=== PATIENT | female | born 1935 | race Hispanic/Latino ===

== ENCOUNTER 2019-07-08 18:16 | Observation (INO) | payer MEDICARE ==
--- NOTE | 2019-07-08 19:27 | Emergency Department Report ---
ED Head Trauma HPI - General Chief complaint: Head Injury Stated complaint: HEAD PAIN AFTER FALL Time Seen by Provider: 07/08/19 19:20 Source: family, EMS Mode of arrival: Stretcher Limitations: No Limitations - History of Present Illness Initial comments: Patient is an 84-year-old female that presents emergency room with complaints of fall and head injury and loss of conscious. Patient states that she lost her balance and fell backwards and hit her head on the stairs. Patient states she did not fall very for. Patient states she fell from a standing position. Patient states she didnot lost consciousness but is not sure how long she lost consciousness. Patient states has a bump on the back of her head. Patient states she is on eliquis. Patient denies any active bleeding. Patient denies any cuts or abrasions. Patient denies chest pain or shortness of breath. Patient denies any symptoms at this time except for headache. Patient denies neck pain. Patient states her pain in the back part of her head is a 3 out of 10. Patient states her pain is better with rest. Patient states her pain is improving with time. Patient has not taken any [id number] medications. MD Complaint: head injury, head pain -: Sudden Mechanism of Injury: other Location: occipital Loss of Consciousness: no Previous Trauma to this Area: No Place: home Radiation: none Severity scale (0 -10): 3 Quality: dull, aching Consistency: constant Other Injuries: none Context: on other anticoagulant Associated Symptoms: other. denies: confusion, amnesia, repetitive questioning, vision changes, nausea, vomiting, vertigo, syncope, numbness, weakness, tingling, neck pain - Related Data Allergies/Adverse reactions: Allergies Allergy/AdvReac Type Severity Reaction Status Date / Time codeine Allergy Anaphylaxis Verified 07/08/19 19:31 lorazepam [From Ativan] Allergy Anaphylaxis Verified 07/08/19 19:31 Sulfa (Sulfonamide Allergy Anaphylaxis Verified 07/08/19 19:31 Antibiotics) ED Review of Systems ROS: Stated complaint: HEAD PAIN AFTER FALL Other details as noted in HPI Constitutional: denies: chills, fever Eyes: denies: eye pain, eye discharge, vision change ENT: denies: ear pain, throat pain Respiratory: denies: cough, shortness of breath, wheezing Cardiovascular: denies: chest pain, palpitations Endocrine: no symptoms reported Gastrointestinal: denies: abdominal pain, nausea, diarrhea Genitourinary: denies: urgency, dysuria, discharge Musculoskeletal: denies: back pain, joint swelling, arthralgia Skin: denies: rash, lesions Neurological: headache. denies: weakness, paresthesias Psychiatric: denies: anxiety, depression Hematological/Lymphatic: denies: easy bleeding, easy bruising ED Past Medical Hx - Past Medical History Previous Medical History?: Yes Hx Hypertension: Yes Hx Deep Vein Thrombosis: Yes Hx Renal Disease: No Hx Arthritis: Yes - Surgical History Past Surgical History?: Yes Additional Surgical History: Right knee replacement. Left hip replacement - Family History Family history: no significant - Social History Smoking Status: Never Smoker Substance Use Type: None ED Physical Exam - General Limitations: No Limitations General appearance: alert, in no apparent distress - Head Head exam: Present: normocephalic, other (scalp contusion) - Eye Eye exam: Present: normal appearance - ENT ENT exam: Present: mucous membranes moist - Neck Neck exam: Present: normal inspection - Respiratory Respiratory exam: Present: normal lung sounds bilaterally. Absent: respiratory distress, wheezes, rales - Cardiovascular Cardiovascular Exam: Present: regular rate, normal rhythm. Absent: systolic murmur, diastolic murmur, rubs, gallop - GI/Abdominal GI/Abdominal exam: Present: soft, normal bowel sounds - Extremities Exam Extremities exam: Present: normal inspection - Back Exam Back exam: Present: normal inspection - Neurological Exam Neurological exam: Present: alert, oriented X3 - Psychiatric Psychiatric exam: Present: normal affect, normal mood - Skin Skin exam: Present: warm, dry, intact, normal color. Absent: rash ED Course Vital Signs 07/08/19 07/08/19 07/08/19 18:41 19:18 19:31 Temperature 98.2 F Pulse Rate 79 84 77 Respiratory 16 14 15 Rate Blood Pressure 137/46 83/60 O2 Sat by Pulse 98 100 Oximetry 07/08/19 07/08/19 07/08/19 19:45 20:00 20:15 Temperature Pulse Rate 77 76 79 Respiratory 22 22 21 Rate Blood Pressure 137/46 125/41 125/41 O2 Sat by Pulse 100 99 99 Oximetry 07/08/19 07/08/19 07/08/19 20:30 20:55 21:01 Temperature Pulse Rate 77 77 73 Respiratory 19 15 19 Rate Blood Pressure 110/38 110/38 107/31 O2 Sat by Pulse 100 100 99 Oximetry 07/08/19 07/08/19 07/08/19 21:15 21:30 21:45 Temperature Pulse Rate 70 73 72 Respiratory 17 16 14 Rate Blood Pressure 98/32 105/33 123/45 O2 Sat by Pulse 100 100 100 Oximetry 07/08/19 07/08/19 07/08/19 22:01 22:16 22:30 Temperature Pulse Rate 75 78 78 Respiratory 21 12 19 Rate Blood Pressure 128/43 128/43 140/44 O2 Sat by Pulse 99 99 100 Oximetry 07/08/19 07/08/19 07/08/19 22:45 23:01 23:15 Temperature Pulse Rate 75 78 79 Respiratory 19 20 16 Rate Blood Pressure 126/44 126/42 135/51 O2 Sat by Pulse 100 99 100 Oximetry 07/08/19 07/09/19 23:30 00:00 Temperature 98.2 F Pulse Rate 78 78 Respiratory 19 19 Rate Blood Pressure 145/53 O2 Sat by Pulse 100 100 Oximetry - Reevaluation(s) Reevaluation #1: I discussed all results with patient and family. Patient agrees with plan of care and admission. Patient will be admitted to the hospitalist service. 07/08/19 21:51 - Consultations Consultation #1: Hospitalist consult for admission. Hospitalist admit patient. 07/08/19 21:51 - Lab Data Result diagrams: 07/08/19 20:12 07/08/19 20:12 Lab Results 07/08/19 07/08/19 Range/Units 20:12 20:12 WBC 4.8 (4.5-11.0) K/mm3 RBC 2.97 L (3.65-5.03) M/mm3 Hgb 9.6 L (10.1-14.3) gm/dl Hct 27.7 L (30.3-42.9) % MCV 93 (79-97) fl MCH 32 (28-32) pg MCHC 35 H (30-34) % RDW 13.2 (13.2-15.2) % Plt Count 133 L (140-440) K/mm3 Sodium 135 L (137-145) mmol/L Potassium 5.9 H (3.6-5.0) mmol/L Chloride 109.2 H (98-107) mmol/L Carbon Dioxide 15 L (22-30) mmol/L Anion Gap 17 mmol/L BUN 32 H (7-17) mg/dL Creatinine 1.3 H (0.7-1.2) mg/dL Estimated GFR 39 ml/min BUN/Creatinine Ratio 25 % Glucose 269 H (65-100) mg/dL Calcium 8.8 (8.4-10.2) mg/dL Total Bilirubin 0.50 (0.1-1.2) mg/dL AST 27 (5-40) units/L ALT 15 (7-56) units/L Alkaline Phosphatase 109 (35-129) units/L Total Protein 6.3 (6.3-8.2) g/dL Albumin 2.8 L (3.9-5) g/dL Albumin/Globulin Ratio 0.8 % - Radiology Data LEFT HIP AND PELVIS 4 VIEWS INDICATION: hip pain. fall. COMPARISON: No relevant prior imaging study available. FINDINGS: There is a left hip arthroplasty. No periprosthetic lucency is seen. No acute, displaced fracture or dislocation is seen. There is diffuse, subjective osteopenia. IMPRESSION: 1. No acute findings. NONENHANCED CT SCAN OF THE HEAD: INDICATION / CLINICAL INFORMATION: 84 years Female; head ache. head injury, loc, contusion,. TECHNIQUE: Routine CT head without contrast. All CT scans at this location are performed using CT dose reduction for ALARA by means of automated exposure control. COMPARISON: None. FINDINGS: BRAIN / INTRACRANIAL CONTENTS: No intracranial sequela from the trauma. No scalp hematoma., Focal area of scalp thickening in the left posterior parietal region; no air-fluid level in the visualized portions of the paranasal sinuses. No acute hemorrhage, mass effect, midline shift, hydrocephalus, or acute, large territorial infarct. Mild to moderate cortical involution is seen. Volume loss is also seen in the cerebellar hemispheres. Normal temporal horn tips suggest normal hippocampi. Low- attenuation deep hemispheric white matter lesions are seen probably due to chronic ischemia. No significant white matter abnormality. CRANIOCERVICAL JUNCTION: No significant abnormality. ORBITS: No significant abnormality of visualized orbits. SINUSES / MASTOIDS: No significant abnormality of the visualized paranasal sinuses or mastoid air cells. ADDITIONAL FINDINGS: None. IMPRESSION: No acute lesion in the brain No intracranial sequela from the trauma - Medical Decision Making Patient is an 84-year-old female that presents emergency room with a fall, head injury, scalp contusion. Patient believes she lost her balance. Patient was found to be hypotensive. Patient's blood pressure relatively low for her since she has a history of hypertension. Patient's fall possibly secondary to low blood pressure. Head CT negative. Patient also complained of hip pain and x- ray negative for fracture. Patient also found to have renal insufficiency and hyperkalemia. Patient admitted to the hospitalist service for further evaluation and treatment. Patient given fluids in the ER. - Differential Diagnosis renal insufficiency, dehydration, fall, head injury Critical Care Time: Yes Critical care time in (mins) excluding proc time.: 35 Critical care attestation.: If time is entered above; I have spent that time in minutes in the direct care of this critically ill patient, excluding procedure time. Critical Care Time: 35 minutes ED Disposition Clinical Impression: Left hip pain, Weakness, Hyperkalemia Head injury Qualifiers: Encounter type: initial encounter Qualified Code(s): S09.90XA - Unspecified injury of head, initial encounter Acute renal failure Qualifiers: Acute renal failure type: unspecified Qualified Code(s): N17.9 - Acute kidney failure, unspecified Hypotension Qualifiers: Hypotension type: unspecified hypotension type Qualified Code(s): I95.9 - Hypotension, unspecified Disposition: DC-09 OP ADMIT IP TO THIS HOSP Is pt being admited?: Yes Does the pt Need Aspirin: No Condition: Critical Time of Disposition: 21:51
[2019-07-08 20:35] LABS: Hematocrit 27.7 % (30.3-42.9); Hemoglobin 9.6 gm/dl (10.1-14.3); Mean Corpuscular HGB Conc 35 % (30-34); Mean Corpuscular Volume 93 fl (79-97); Platelet Count 133 K/mm3 (140-440); Red Blood Count 2.97 M/mm3 (3.65-5.03); Red Cell Distribution Width 13.2 % (13.2-15.2)
--- NOTE | 2019-07-08 20:45 | XRay Report ---
LEFT HIP AND PELVIS 4 VIEWS INDICATION: hip pain. fall. COMPARISON: No relevant prior imaging study available. FINDINGS: There is a left hip arthroplasty. No periprosthetic lucency is seen. No acute, displaced fracture or dislocation is seen. There is diffuse, subjective osteopenia. IMPRESSION: 1. No acute findings. Signer Name: Sachin Harden MD Signed: 07/08/2019 8:40 PM Workstation Name: [email or web address]
[2019-07-08 20:55] LABS: Albumin 2.8 g/dL (3.9-5); Calcium 8.8 mg/dL (8.4-10.2)
--- NOTE | 2019-07-08 21:25 | Cat Scan Report ---
NONENHANCED CT SCAN OF THE HEAD: INDICATION / CLINICAL INFORMATION: 84 years Female; head ache. head injury, loc, contusion,. TECHNIQUE: Routine CT head without contrast. All CT scans at this location are performed using CT dos e reduction for ALARA by means of automated exposure control. COMPARISON: None. FINDINGS: BRAIN / INTRACRANIAL CONTENTS: No intracranial sequela from the trauma. No scalp hematoma., Focal are a of scalp thickening in the left posterior parietal region; no air-fluid level in the visualized por tions of the paranasal sinuses. No acute hemorrhage, mass effect, midline shift, hydrocephalus, or acute, large territorial infarct. Mild to moderate cortical involution is seen. Volume loss is also seen in the cerebellar hemispheres . Normal temporal horn tips suggest normal hippocampi. Low-attenuation deep hemispheric white matter lesions are seen probably due to chronic ischemia. No significant white matter abnormality. CRANIOCERVICAL JUNCTION: No significant abnormality. ORBITS: No significant abnormality of visualized orbits. SINUSES / MASTOIDS: No significant abnormality of the visualized paranasal sinuses or mastoid air elkin ls. ADDITIONAL FINDINGS: None. IMPRESSION: No acute lesion in the brain No intracranial sequela from the trauma Signer Name: Jordon Hummel MD Signed: 07/08/2019 9:20 PM Workstation Name: [email or web address]
[2019-07-08] MEDS ORDERED: SODIUM CHLORIDE 0.9% 1000 ML 1,000 ML IV ONE (21:48)
[2019-07-08] MEDS ORDERED: CALCIUM CHLORIDE 1,000 MG/10 ML SDV IVP ONE (21:48)
[2019-07-08] MEDS ORDERED: CALCIUM CHLORIDE 1,000 MG in SODIUM CHLORIDE 0.9% 100 ML IV ONE (22:00)
[2019-07-08] MEDS ORDERED: DEXTROSE 50% IN WATER (25GM) 50 ML SYRINGE IV PRN (22:27)
[2019-07-08] MEDS ORDERED: MAGNESIUM HYDROXIDE (MOM) ORAL LIQD UDC PO PRN (22:27)
[2019-07-08] MEDS ORDERED: ONDANSETRON 4 MG/2 ML INJ IV PRN (22:27)
--- NOTE | 2019-07-08 22:40 | History and Physical Report ---
History of Present Illness Date of examination: 07/08/19 Date of admission: 07/08/2019 Chief complaint: Left hip pain status post fall History of present illness: 84-year-old white female with significant past medical history of diabetes mellitus, coronary artery disease, history of DVT and NE in the past presenting to the emergency room today after having a fall at home complaining of left hip pain and headache. She indicates that she lost her balance and fell backwards hitting the back of her head. She is not quite sure whether she lost consciousness for a few seconds. She denies any blurry vision, no chest pain or shortness of breath, no nausea vomiting, no fever or chills. Patient denies history of frequent falls. Upon arrival in the emergency room work-up reveals hyperkalemia and some renal insufficiency. Past History Past Medical History: CAD, diabetes, DVT, hypertension, other (History of colon cancer,) Past Surgical History: total hip replacement (Left hip replacement), total knee replacement (Right knee), PTCA, Other (Left rotator cuff surgery, IVC filter placement) Social history: no significant social history Family history: no significant family history Medications and Allergies Allergies Allergy/AdvReac Type Severity Reaction Status Date / Time codeine Allergy Anaphylaxis Verified 07/08/19 19:31 lorazepam [From Ativan] Allergy Anaphylaxis Verified 07/08/19 19:31 Sulfa (Sulfonamide Allergy Anaphylaxis Verified 07/08/19 19:31 Antibiotics) Active Meds: Active Medications Acetaminophen (Tylenol) 650 mg PO Q4H PRN PRN Reason: Pain MILD(1-3)/Fever >100.5/QUAN Dextrose (D50w (25gm) Syringe) 50 ml IV Q30MIN PRN; Protocol PRN Reason: Hypoglycemia Sodium Chloride (Nacl 0.9% 1000 Ml) 1,000 mls @ 999 mls/hr IV BOLUS ONE Stop: 07/08/19 22:48 Sodium Chloride (Nacl 0.9% 1000 Ml) 1,000 mls @ 75 mls/hr IV DIRECT JOVANI Insulin Human Lispro (Humalog) 0 unit SUB-Q ACHS JOVANI; Protocol Magnesium Hydroxide (Milk Of Magnesia) 30 ml PO Q4H PRN PRN Reason: Constipation Ondansetron HCl (Zofran) 4 mg IV Q8H PRN PRN Reason: Nausea And Vomiting Sodium Chloride (Sodium Chloride Flush Syringe 10 Ml) 10 ml IV BID JOVANI Sodium Chloride (Sodium Chloride Flush Syringe 10 Ml) 10 ml IV PRN PRN PRN Reason: LINE FLUSH Review of Systems Musculoskeletal: other (Left hip pain) Neurological: headaches Exam - Constitutional Vitals: Temp Pulse Resp BP Pulse Ox 98.2 F 79 16 137/46 98 07/08/19 18:41 07/08/19 18:41 07/08/19 18:41 07/08/19 18:41 07/08/19 18:41 General appearance: Present: no acute distress, well-nourished - EENT Eyes: Present: PERRL, EOM intact ENT: hearing intact (Patient has some hearing impairment), clear oral mucosa, dentition normal, other (Bruises on left ear) - Neck Neck: Present: supple, normal ROM - Respiratory Respiratory effort: normal Respiratory: bilateral: CTA - Cardiovascular Rhythm: regular Heart Sounds: Present: S1 & S2 - Extremities Extremities: no ischemia, No edema, Full ROM Extremity abnormal: other (Healed scar of surgery on right knee) Peripheral Pulses: within normal limits - Abdominal General gastrointestinal: Present: soft, non-tender, non-distended - Integumentary Integumentary: Present: clear, warm, dry - Musculoskeletal Musculoskeletal: strength equal bilaterally - Psychiatric Psychiatric: appropriate mood/affect, intact judgment & insight, cooperative - Neurologic Neurologic: CNII-XII intact, moves all extremities Results - Labs CBC & Chem 7: 07/08/19 20:12 07/08/19 20:12 Labs: Abnormal lab results 07/08/19 07/08/19 Range/Units 20:12 20:12 RBC 2.97 L (3.65-5.03) M/mm3 Hgb 9.6 L (10.1-14.3) gm/dl Hct 27.7 L (30.3-42.9) % MCHC 35 H (30-34) % Plt Count 133 L (140-440) K/mm3 Sodium 135 L (137-145) mmol/L Potassium 5.9 H (3.6-5.0) mmol/L Chloride 109.2 H (98-107) mmol/L Carbon Dioxide 15 L (22-30) mmol/L BUN 32 H (7-17) mg/dL Creatinine 1.3 H (0.7-1.2) mg/dL Glucose 269 H (65-100) mg/dL Albumin 2.8 L (3.9-5) g/dL Assessment and Plan - Patient Problems (1) Hyperkalemia Current Visit: Yes Status: Acute Plan to address problem: Patient has had insulin and glucose, calcium gluconate in the emergency room. Will monitor potassium levels. We will also monitor EKG. (2) Left hip pain Current Visit: Yes Status: Acute Plan to address problem: Radiological exam was unremarkable. Will place on analgesic medication as needed. (3) Fall Current Visit: Yes Status: Acute Plan to address problem: Patient placed on fall precautions. (4) ARTHUR (acute kidney injury) Current Visit: Yes Status: Acute Plan to address problem: Patient has been placed on IV fluid. Will monitor BUN and creatinine. (5) Diabetes mellitus Current Visit: Yes Status: Acute Plan to address problem: We will monitor Accu-Cheks and resume routine home medications once reconciled.. (6) DVT prophylaxis Current Visit: Yes Status: Acute Plan to address problem: Patient placed on subcutaneous heparin. (7) Full code status Current Visit: Yes Status: Acute
[2019-07-08] MEDS ORDERED: CALCIUM CHLORIDE 1,000 MG/10 ML SYRINGE IV ONE (23:37)
[2019-07-09] MEDS: SODIUM CHLORIDE 0.9% 1000 ML 1,000 ML IV SCH ×2 (02:06→20:49)
[2019-07-09 06:27] LABS: Basophils % (Auto) 0.4 % (0.0-1.8); Eosinophils # (Auto) 0.3 K/mm3 (0.0-0.4); Eosinophils % (Auto) 6.5 % (0.0-4.3); Hematocrit 26.4 % (30.3-42.9); Lymphocytes # (Auto) 1.1 K/mm3 (1.2-5.4); Lymphocytes % (Auto) 29.1 % (13.4-35.0); Mean Corpuscular HGB Conc 34 % (30-34); Mean Corpuscular Volume 93 fl (79-97); Monocytes # (Auto) 0.5 K/mm3 (0.0-0.8); Monocytes % (Auto) 12.4 % (0.0-7.3); Platelet Count 128 K/mm3 (140-440); Red Blood Count 2.84 M/mm3 (3.65-5.03); Red Cell Distribution Width 13.1 % (13.2-15.2)
[2019-07-09 06:39] LABS: INR 1.66 (0.87-1.13)
[2019-07-09 06:40] LABS: Partial Thromboplastin Time 36.8 Sec. (24.2-36.6)
[2019-07-09 06:50] LABS: Calcium 9.3 mg/dL (8.4-10.2)
[2019-07-09] MEDS: INSULIN LISPRO 100 UNIT/ML SUB-Q SCH ×4 (07:06→23:12)
[2019-07-09] MEDS: ACETAMINOPHEN 325 MG TAB PO PRN (11:08)
[2019-07-09] MEDS: HEPARIN 5,000 UNIT/1 ML VIAL SUB-Q SCH ×2 (14:28→22:49)
--- NOTE | 2019-07-09 15:44 | Progress Note ---
Assessment and Plan - Patient Problems (1) ARTHUR (acute kidney injury) Current Visit: Yes Status: Acute Plan to address problem: IV fluid resuscitation therapy, repeat BMP in a.m., serum creatinine has normalized, avoid nephrotoxic agents. (2) Post-concussion syndrome Current Visit: Yes Status: Acute Plan to address problem: CT head, neurochecks, seizure precaution, supportive care. If patient experiences mental status changes or multiple episodes of nausea and vomiting will repeat CT of the head. (3) Hyperkalemia Current Visit: Yes Status: Acute Plan to address problem: Repeat BMP, supportive care. No EKG changes. (4) Metabolic acidosis Current Visit: Yes Status: Acute Plan to address problem: Repeat BMP, IV bicarbonate therapy, (5) Diabetes mellitus Current Visit: Yes Status: Acute Plan to address problem: Consistent carbohydrate diet, Accu-Chek, sliding scale insulin therapy, hypoglycemia protocol. (6) DVT prophylaxis Current Visit: Yes Status: Acute Plan to address problem: SCD to bilateral lower extremities while in bed, prophylactic heparin History Interval history: 84-year-old female hospital day 2 with acute kidney injury, hyperchloremic metabolic acidosis, hyperkalemia, postconcussive syndrome, debility, vascular dementia with worsening acidosis overnight. Patient complains of weakness, unsteady gait, "feeling like I am off balance". Patient denies fever, chills, dizziness, headache, vision changes. Lab and imaging studies reviewed. Patient serum potassium is still elevated. Hospitalist Physical - Constitutional Vitals: Temp Pulse Resp BP Pulse Ox 98.0 F 87 19 130/36 96 07/09/19 07:31 07/09/19 12:09 07/09/19 12:09 07/09/19 12:07/09/19 12:09 General appearance: Present: no acute distress, well-nourished - EENT Eyes: Present: PERRL ENT: hearing intact - Neck Neck: Present: supple - Respiratory Respiratory: bilateral: CTA - Cardiovascular Rhythm: regular Heart Sounds: Present: S1 & S2 - Extremities Extremities: no ischemia Peripheral Pulses: within normal limits - Abdominal General gastrointestinal: soft, non-tender, non-distended - Integumentary Integumentary: Present: clear, dry - Psychiatric Psychiatric: appropriate mood/affect, cooperative - Neurologic Neurologic: CNII-XII intact Results - Labs CBC & Chem 7: 07/09/19 05:23 07/09/19 05:23 Labs: Laboratory Last Values WBC 3.9 K/mm3 (4.5-11.0) L 07/09/19 05:23 RBC 2.84 M/mm3 (3.65-5.03) L 07/09/19 05:23 Hgb 9.0 gm/dl (10.1-14.3) L 07/09/19 05:23 Hct 26.4 % (30.3-42.9) L 07/09/19 05:23 MCV 93 fl (79-97) 07/09/19 05:23 MCH 32 pg (28-32) 07/09/19 05:23 MCHC 34 % (30-34) 07/09/19 05:23 RDW 13.1 % (13.2-15.2) L 07/09/19 05:23 Plt Count 128 K/mm3 (140-440) L 07/09/19 05:23 Lymph % (Auto) 29.1 % (13.4-35.0) 07/09/19 05:23 Beckham % (Auto) 12.4 % (0.0-7.3) H 07/09/19 05:23 Eos % (Auto) 6.5 % (0.0-4.3) H 07/09/19 05:23 Baso % (Auto) 0.4 % (0.0-1.8) 07/09/19 05:23 Lymph # 1.1 K/mm3 (1.2-5.4) L 07/09/19 05:23 Beckham # 0.5 K/mm3 (0.0-0.8) 07/09/19 05:23 Eos # 0.3 K/mm3 (0.0-0.4) 07/09/19 05:23 Baso # 0.0 K/mm3 (0.0-0.1) 07/09/19 05:23 Seg Neutrophils % 51.6 % (40.0-70.0) 07/09/19 05:23 Seg Neutrophils # 2.0 K/mm3 (1.8-7.7) 07/09/19 05:23 PT 19.9 Sec. (12.2-14.9) H 07/09/19 05:23 INR 1.66 (0.87-1.13) H 07/09/19 05:23 APTT 36.8 Sec. (24.2-36.6) H 07/09/19 05:23 Sodium 140 mmol/L (137-145) 07/09/19 05:23 Potassium 5.3 mmol/L (3.6-5.0) H 07/09/19 05:23 Chloride 115.4 mmol/L (98-107) H 07/09/19 05:23 Carbon Dioxide 13 mmol/L (22-30) L 07/09/19 05:23 Anion Gap 17 mmol/L 07/09/19 05:23 BUN 29 mg/dL (7-17) H 07/09/19 05:23 Creatinine 1.0 mg/dL (0.7-1.2) 07/09/19 05:23 Estimated GFR 53 ml/min 07/09/19 05:23 BUN/Creatinine Ratio 29 % 07/09/19 05:23 Glucose 124 mg/dL (65-100) H 07/09/19 05:23 POC Glucose 220 (70-105) H 07/09/19 11:27 Calcium 9.3 mg/dL (8.4-10.2) 07/09/19 05:23 Total Bilirubin 0.50 mg/dL (0.1-1.2) 07/08/19 20:12 AST 27 units/L (5-40) 07/08/19 20:12 ALT 15 units/L (7-56) 07/08/19 20:12 Alkaline Phosphatase 109 units/L (35-129) 07/08/19 20:12 Total Protein 6.3 g/dL (6.3-8.2) 07/08/19 20:12 Albumin 2.8 g/dL (3.9-5) L 07/08/19 20:12 Albumin/Globulin Ratio 0.8 % 07/08/19 20:12 Active Medications - Current Medications Current Medications: Generic Name Dose Route Start Last Admin Trade Name Freq PRN Reason Stop Dose Admin Acetaminophen 650 mg 07/08/19 22:27 07/09/19 11:08 Tylenol PO 650 mg Q4H PRN Administration Pain MILD(1-3)/Fever >100.5/QUAN Dextrose 50 ml 01/08/20 22:27 D50w (25gm) Syringe IV Q30MIN PRN Hypoglycemia Protocol Heparin Sodium (Porcine) 5,000 unit 07/09/19 14:00 07/09/19 14:28 Heparin SUB-Q 5,000 unit Q8HR JOVANI Administration Sodium Chloride 1,000 mls @ 75 mls/hr 07/08/19 22:30 07/09/19 02:06 Nacl 0.9% 1000 Ml IV 75 mls/hr DIRECT JOVANI Administration Insulin Human Lispro 0 unit 07/09/19 07:30 07/09/19 11:17 Humalog SUB-Q 3 unit ACHS JOVANI Administration Protocol Magnesium Hydroxide 30 ml 07/08/19 22:27 Milk Of Magnesia PO Q4H PRN Constipation Ondansetron HCl 4 mg 07/08/19 22:27 Zofran IV Q8H PRN Nausea And Vomiting Sodium Chloride 10 ml 07/09/19 10:00 07/09/19 11:07 Sodium Chloride Flush Syringe 10 Ml IV 10 ml BID JOVANI Administration Sodium Chloride 10 ml 07/08/19 22:27 07/09/19 02:07 Sodium Chloride Flush Syringe 10 Ml IV 10 ml PRN PRN Administration LINE FLUSH Nutrition/Malnutrition Assess - Dietary Evaluation Nutrition/Malnutrition Findings: Nutrition Notes Start: 07/09/19 10:41 Freq: Status: Active Protocol: Document 07/09/19 10:41 LAURENCE (Rec: 07/09/19 10:50 LAURENCE [id number]) Co-Sign 07/09/19 10:41 LP Nutrition Notes Need for Assessment generated from: MD Order Initial or Follow up Assessment Current Diagnosis Coronary Artery Disease, Diabetes,Hypertension Other Pertinent Diagnosis Hx colon cancer Current Diet Consistent CHO/Cardiac Labs/Tests K 5.3 BUN 29 BG 124 Pertinent Medications Reviewed Height 5 ft 3 in Weight 68 kg Usual Body Weight 68 kg [place] Body Weight (kg) 52.27 BMI 26.5 Intake Prior to Admission Fair Weight Status Overweight Subjective/Other Information RD screen for skin risk. Nicholas score was 24. Pt has a few skin breakdowns. Pt has had no wt loss. Pt stated that she hasn't felt hungry since march due to not feeling well. Pt stated that she normally eats breakfast, a snack, and dinner which is normal for her. Pt stated that she does her own cooking and hasn't felt well to do it. Noted no muscle or fat wasting . Pt stated no N/V. Percent of energy/protein needs met: <25% of needs Burn Absent Trauma Absent GI Symptoms None Current % PO Poor (25-49%) Minimum of two criteria No Energy Intake (non-severe) <75% Estimated Energy Requirement >7 days #1 Nutrition Diagnosis Inadequate oral intake Etiology Left hip pain As Evidenced by Signs and Symptoms <75% of estimated energy requirement in >7 days, recent fall Is patient on ventilator? No Is Patient Ambulatory and/or Out of Bed Yes REE-([facility]-ambulatory/OOB) [ 1441.869 [id number]] Calculation Used for Recommendations [facility] Additional Notes Protein: 68-82g (1-1.2g/kg) Fluid: 1ml/kcal Nutrition Intervention Change Diet Order: Continue current Add Supplement/Snack (indicate name/kcal Glucerna daily /protein ) Provides kCal: 220 Provides Protein (gm) 10 Goal #1 Meet at least 75% of energy and protein needs via PO Anticipated Discharge Needs: Consistent CHO/Cardiac Follow-Up By: 07/13/19 Additional Comments F/U for PO intakes and ONS tolerance
[2019-07-09] MEDS ORDERED: SODIUM BICARB 8.4% 50 MEQ/50 ML SYRINGE IV ONE ×3 (16:46→23:00)
[2019-07-10] MEDS: ACETAMINOPHEN 325 MG TAB PO PRN (05:42)
[2019-07-10] MEDS: HEPARIN 5,000 UNIT/1 ML VIAL SUB-Q SCH ×3 (05:43→23:36)
[2019-07-10] MEDS: INSULIN LISPRO 100 UNIT/ML SUB-Q SCH ×4 (08:14→23:35)
[2019-07-10 14:47] LABS: Calcium 8.5 mg/dL (8.4-10.2)
--- NOTE | 2019-07-10 16:00 | Progress Note ---
Assessment and Plan - Patient Problems (1) ARTHUR (acute kidney injury) Current Visit: Yes Status: Resolved Plan to address problem: IV fluid resuscitation therapy, repeat BMP in a.m., serum creatinine has normalized, avoid nephrotoxic agents. (2) Post-concussion syndrome Current Visit: Yes Status: Acute Plan to address problem: CT head, neurochecks, seizure precaution, supportive care. If patient experiences mental status changes or multiple episodes of nausea and vomiting will repeat CT of the head. (3) Hyperkalemia Current Visit: Yes Status: Acute Plan to address problem: Repeat BMP, supportive care. No EKG changes. (4) Metabolic acidosis Current Visit: Yes Status: Acute Plan to address problem: Repeat BMP, IV bicarbonate therapy, (5) Diabetes mellitus Current Visit: Yes Status: Acute Plan to address problem: Consistent carbohydrate diet, Accu-Chek, sliding scale insulin therapy, hypoglycemia protocol. (6) Osteoarthritis Current Visit: Yes Status: Acute Qualifiers: Laterality: left Plan to address problem: Left hip pain status post fall: Pain control, supportive care. . (7) DVT prophylaxis Current Visit: Yes Status: Acute Plan to address problem: SCD to bilateral lower extremities while in bed, prophylactic heparin History Interval history: 84-year-old female hospital day 3 with acute kidney injury, hyperchloremic metabolic acidosis, hyperkalemia, postconcussive syndrome, debility, vascular dementia with worsening acidosis overnight. Patient complains of weakness, unsteady gait, and continuing to "feel like I am off balance". Patient has unsteady gait but is able to ambulte to restroom with standby assistance. denies fever, chills, dizziness, headache, vision changes. Lab and imaging studies reviewed. Patient serum potassium has normalized. but patient has persistent acidosis. PT consulted. Hospitalist Physical - Constitutional Vitals: Temp Pulse Resp BP Pulse Ox 98.8 F 97 H 18 146/51 96 07/10/19 15:30 07/10/19 15:30 07/10/19 15:30 07/10/19 15:30 07/10/19 15:30 General appearance: Present: no acute distress, well-nourished - EENT Eyes: Present: PERRL ENT: hearing decreased - Respiratory Respiratory: bilateral: CTA - Cardiovascular Rhythm: regular Heart Sounds: Present: S1 & S2 - Extremities Extremity abnormal: edema, other (BLE Weakness,) Peripheral Pulses: within normal limits - Abdominal General gastrointestinal: soft, non-tender, non-distended - Integumentary Integumentary: Present: clear, dry - Psychiatric Psychiatric: appropriate mood/affect, cooperative - Neurologic Neurologic: CNII-XII intact, moves all extremities, no gait normal Results - Labs CBC & Chem 7: 07/09/19 05:23 07/10/19 13:56 Labs: Laboratory Last Values WBC 3.9 K/mm3 (4.5-11.0) L 07/09/19 05:23 RBC 2.84 M/mm3 (3.65-5.03) L 07/09/19 05:23 Hgb 9.0 gm/dl (10.1-14.3) L 07/09/19 05:23 Hct 26.4 % (30.3-42.9) L 07/09/19 05:23 MCV 93 fl (79-97) 07/09/19 05:23 MCH 32 pg (28-32) 07/09/19 05:23 MCHC 34 % (30-34) 07/09/19 05:23 RDW 13.1 % (13.2-15.2) L 07/09/19 05:23 Plt Count 128 K/mm3 (140-440) L 07/09/19 05:23 Lymph % (Auto) 29.1 % (13.4-35.0) 07/09/19 05:23 [place] % (Auto) 12.4 % (0.0-7.3) H 07/09/19 05:23 Eos % (Auto) 6.5 % (0.0-4.3) H 07/09/19 05:23 Baso % (Auto) 0.4 % (0.0-1.8) 07/09/19 05:23 Lymph # 1.1 K/mm3 (1.2-5.4) L 07/09/19 05:23 [place] # 0.5 K/mm3 (0.0-0.8) 07/09/19 05:23 Eos # 0.3 K/mm3 (0.0-0.4) 07/09/19 05:23 Baso # 0.0 K/mm3 (0.0-0.1) 07/09/19 05:23 Seg Neutrophils % 51.6 % (40.0-70.0) 07/09/19 05:23 Seg Neutrophils # 2.0 K/mm3 (1.8-7.7) 07/09/19 05:23 PT 19.9 Sec. (12.2-14.9) H 07/09/19 05:23 INR 1.66 (0.87-1.13) H 07/09/19 05:23 APTT 36.8 Sec. (24.2-36.6) H 07/09/19 05:23 Sodium 140 mmol/L (137-145) 07/10/19 13:56 Potassium 4.7 mmol/L (3.6-5.0) 07/10/19 13:56 Chloride 111.6 mmol/L (98-107) H 07/10/19 13:56 Carbon Dioxide 16 mmol/L (22-30) L 07/10/19 13:56 Anion Gap 17 mmol/L 07/10/19 13:56 BUN 26 mg/dL (7-17) H 07/10/19 13:56 Creatinine 1.0 mg/dL (0.7-1.2) 07/10/19 13:56 Estimated GFR 53 ml/min 07/10/19 13:56 BUN/Creatinine Ratio 26 % 07/10/19 13:56 Glucose 217 mg/dL (65-100) H 07/10/19 13:56 POC Glucose 189 (70-105) H 07/10/19 11:40 Calcium 8.5 mg/dL (8.4-10.2) 07/10/19 13:56 Total Bilirubin 0.50 mg/dL (0.1-1.2) 07/08/19 20:12 AST 27 units/L (5-40) 07/08/19 20:12 ALT 15 units/L (7-56) 07/08/19 20:12 Alkaline Phosphatase 109 units/L (35-129) 07/08/19 20:12 Total Protein 6.3 g/dL (6.3-8.2) 07/08/19 20:12 Albumin 2.8 g/dL (3.9-5) L 07/08/19 20:12 Albumin/Globulin Ratio 0.8 % 07/08/19 20:12 Active Medications - Current Medications Current Medications: Generic Name Dose Route Start Last Admin Trade Name Freq PRN Reason Stop Dose Admin Acetaminophen 650 mg 07/08/19 22:27 07/10/19 05:42 Tylenol PO 650 mg Q4H PRN Administration Pain MILD(1-3)/Fever >100.5/QUAN Dextrose 50 ml 07/08/19 22:27 D50w (25gm) Syringe IV Q30MIN PRN Hypoglycemia Protocol Heparin Sodium (Porcine) 5,000 unit 07/09/19 14:00 07/10/19 13:29 Heparin SUB-Q 5,000 unit Q8HR JOVANI Administration Sodium Chloride 1,000 mls @ 75 mls/hr 07/08/19 22:30 07/09/19 20:49 Nacl 0.9% 1000 Ml IV 75 mls/hr DIRECT JOVANI Administration Insulin Human Lispro 0 unit 07/09/19 07:30 07/10/19 13:28 Humalog SUB-Q 2 unit ACHS JOVANI Administration Protocol Magnesium Hydroxide 30 ml 07/08/19 22:27 Milk Of Magnesia PO Q4H PRN Constipation Ondansetron HCl 4 mg 07/08/19 22:27 Zofran IV Q8H PRN Nausea And Vomiting Sodium Chloride 10 ml 07/09/19 10:00 07/10/19 13:29 Sodium Chloride Flush Syringe 10 Ml IV 10 ml BID JOVANI Administration Sodium Chloride 10 ml 07/08/19 22:27 07/09/19 02:07 Sodium Chloride Flush Syringe 10 Ml IV 10 ml PRN PRN Administration LINE FLUSH Nutrition/Malnutrition Assess - Dietary Evaluation Nutrition/Malnutrition Findings: Nutrition Notes Start: 07/09/19 10:41 Freq: Status: Active Protocol: Document 07/09/19 10:41 LAURENCE (Rec: 07/09/19 10:50 LAURENCE [id number]) Co-Sign 07/09/19 10:41 LP Nutrition Notes Need for Assessment generated from: MD Order Initial or Follow up Assessment Current Diagnosis Coronary Artery Disease, Diabetes,Hypertension Other Pertinent Diagnosis Hx colon cancer Current Diet Consistent CHO/Cardiac Labs/Tests K 5.3 BUN 29 BG 124 Pertinent Medications Reviewed Height 5 ft 3 in Weight 68 kg Usual Body Weight 68 kg [place] Body Weight (kg) 52.27 BMI 26.5 Intake Prior to Admission Fair Weight Status Overweight Subjective/Other Information RD screen for skin risk. Nicholas score was 24. Pt has a few skin breakdowns. Pt has had no wt loss. Pt stated that she hasn't felt hungry since march due to not feeling well. Pt stated that she normally eats breakfast, a snack, and dinner which is normal for her. Pt stated that she does her own cooking and hasn't felt well to do it. Noted no muscle or fat wasting . Pt stated no N/V. Percent of energy/protein needs met: <25% of needs Burn Absent Trauma Absent GI Symptoms None Current % PO Poor (25-49%) Minimum of two criteria No Energy Intake (non-severe) <75% Estimated Energy Requirement >7 days #1 Nutrition Diagnosis Inadequate oral intake Etiology Left hip pain As Evidenced by Signs and Symptoms <75% of estimated energy requirement in >7 days, recent fall Is patient on ventilator? No Is Patient Ambulatory and/or Out of Bed Yes REE-([facility]-ambulatory/OOB) [ 1441.869 [id number]] Calculation Used for Recommendations [facility] Additional Notes Protein: 68-82g (1-1.2g/kg) Fluid: 1ml/kcal Nutrition Intervention Change Diet Order: Continue current Add Supplement/Snack (indicate name/kcal Glucerna daily /protein ) Provides kCal: 220 Provides Protein (gm) 10 Goal #1 Meet at least 75% of energy and protein needs via PO Anticipated Discharge Needs: Consistent CHO/Cardiac Follow-Up By: 07/13/19 Additional Comments F/U for PO intakes and ONS tolerance
[2019-07-11] MEDS: HEPARIN 5,000 UNIT/1 ML VIAL SUB-Q SCH ×2 (05:43→17:00)
[2019-07-11 06:15] LABS: Calcium 8.3 mg/dL (8.4-10.2)
[2019-07-11 08:52] VITALS: BP 141/47
[2019-07-11] MEDS: INSULIN LISPRO 100 UNIT/ML SUB-Q SCH ×2 (09:14→12:01)
--- NOTE | 2019-07-11 10:43 | Discharge Summary ---
Providers - Providers Date of Admission: 07/08/19 21:52 Attending physician: ALESHA WAY 07/10/19 11:38 Physical Therapy Evaluation and Treat [CONS] Routine Comment: Reason For Exam: weakness Primary care physician: FARIDA JAMISON Hospitalization Condition: Critical - Discharge Diagnoses (1) ARTHUR (acute kidney injury) Status: Resolved (2) Post-concussion syndrome Status: Acute (3) Hyperkalemia Status: Acute (4) Metabolic acidosis Status: Acute (5) Diabetes mellitus Status: Acute (6) Osteoarthritis Status: Acute Qualifiers: Laterality: left (7) DVT prophylaxis Status: Acute Exam - Constitutional Vitals: Temp Pulse Resp BP Pulse Ox 100.2 F H 98 H 18 141/47 95 07/11/19 08:50 07/11/19 08:50 07/11/19 08:50 07/11/19 08:50 07/11/19 08:50 Plan Follow up with: PRIMARY CAREMD [Referring] - 3-5 Days Other Discharge Orders: Home Health Care (Amb) Location: None Selected Physicial Therapy (Amb) Location: None Selected
== END 2019-07-11 15:05 | disposition home health service (06) ==
LOC: ED 18:16 → 4A 21:52
PROVIDERS: ADMIT Internal Medicine Geriatric Medicine; ATTEND Internal Medicine
DX: N17.9 Acute kidney failure, unspecified (principal); M25.552 Pain in left hip; E87.5 Hyperkalemia; E87.2 Acidosis; F07.81 Postconcussional syndrome; E11.9 Type 2 diabetes mellitus without complications; M19.90 Unspecified osteoarthritis, unspecified site; R53.1 Weakness; I25.10 Atherosclerotic heart disease of native coronary artery without angina pectoris; Z86.718 Personal history of other venous thrombosis and embolism; Z96.642 Presence of left artificial hip joint; Z96.651 Presence of right artificial knee joint; Z79.4 Long term (current) use of insulin; W19.XXXA Unspecified fall, initial encounter; Y93.9 Activity, unspecified; Y92.9 Unspecified place or not applicable; Y99.9 Unspecified external cause status
CPT/HCPCS: 36415; 70450; 73521; 80048; 80053; 82962; 85025; 85027; 85610; 85730; 96372; 96374; 96375; 96376; 99284; G0378; J1644; J7030; J1815